=== PATIENT | female | born 1995 | race Two or more races ===

== ENCOUNTER 2024-03-18 18:44 | Inpatient (IN) | payer MEDICAID, SELFPAY ==
[2024-03-18] VITALS (65 sets, daily range): BP systolic 120–152; BP diastolic 66–83; PULSE 87–134; RESP 16–18; TEMP 36.8; O2SAT 79–100; BMI 27.4
[2024-03-18 20:26] LABS: Basophils % (Auto) 0 % (0-2.5); Eosinophils # (Auto) 0.1 Thou/mm3 (0.0-0.5); Eosinophils % (Auto) 1 % (0-10); Hematocrit 35.4 % (36.0-46.0); Hemoglobin 11.7 g/dL (12.0-16.0); Immature Granulocytes % (Auto) 1 % (0-0); Immature Granulocytes Auto 0.04 Thou/mm3 (0.00-0.00); Lymphocytes # (Auto) 2.2 Thou/mm3 (1.0-4.8); Lymphocytes % (Auto) 33 % (10-50); Mean Corpuscular HGB Conc 33.1 g/dl (31.0-37.0); Mean Corpuscular Hemoglobin 24.3 pg (25.0-35.0); Mean Corpuscular Volume 74 fL (80-100); Monocytes # (Auto) 0.6 Thou/mm3 (0.0-0.8); Monocytes % (Auto) 8 % (0-12); Neutrophils # (Auto) 3.8 Thou/mm3 (1.8-7.7); Neutrophils % (Auto) 57 % (37-80); Nucleated Red Blood Cell % 0 /100 WBC (0); Platelet Count 240 Thou/mm3 (140-440); RDW Standard Deviation 39.8 fL (36.4-46.3); Red Blood Count 4.81 Miln/mm3 (4.00-5.20); White Blood Count 6.7 Thou/mm3 (3.6-11.0)
[2024-03-18 20:56] LABS: Syphilis Nonreactive (Nonreactive)
--- NOTE | 2024-03-18 21:09 | XR_ITS ---
Examination: Complete OB ultrasound greater than 14 weeks Date and time of exam: March 18, 2024 2130 hrs. Indications: Ruptured amniotic membranes 1800 hrs., Active labor, labor evaluation Findings: Viable intrauterine single fetus with single amniotic sac presentation cephalic spine anterior Cardiac motion 131 BPM Placenta anterior grade 3 no abruption Umbilical cord insertion seen Amniotic fluid index 5.0 cm spine anterior Cervix 3.2 cm Ovaries obscured by bowel gas. Composite estimated gestational age based on BPD, head circumference, abdominal circumference, femur length is 38 weeks 6 days Estimated weight 3554.1 g. Survey of intracranial anatomy, spinal anatomy, abdominal anatomy, four-chamber heart performed with no abnormalities identified. Impression: Viable intrauterine gestation cephalic presentation Estimated gestational age 38 weeks 6 days Estimated weight 3554 g.
[2024-03-18] MEDS: RINGERS LACTATED 1000 ML 1,000 ML 125 ML IV (23:07)
[2024-03-19] VITALS (52 sets, daily range): BP systolic 93–150; BP diastolic 52–95; PULSE 73–156; RESP 16–18; TEMP 36.3–37.3; O2SAT 75–100
[2024-03-19] MEDS: MINERAL OIL 30 ML UDC TOP (00:50)
[2024-03-19] MEDS: OXYTOCIN INJ 10 UNIT/ML VIAL IM (01:11)
[2024-03-19] MEDS: MISOPROSTOL 200 mCg TABLET 800 MCG PR (01:14)
--- NOTE | 2024-03-19 01:37 | PD.LDHP ---
Documentation for date of: 03/19/24 OB Labor/Induct. HPI History of Present Illness Chief complaint: ROM/labor : 2 Para: 1 Term pregnancies: 1 pregnancies: 0 Living children: 0 History of Abortions: Spontaneous and Elective: 0 History of Vaginal deliveries: 1 History of sections: No History of : No Date of last menstrual period: 06/18/23 MAMTA: 03/24/24 Gestational Age (weeks): 39 Gestational Age (days): 2 Gestational age based on last menstrual period: 39 History of present illness: This is a 28-year-old 2 para 1 admit to labor and delivery with complaints of contractions since 1840 and she started leaking clear fluid at 1800. She has been followed at [facility] care. First visit 6 weeks. Last. June 18, 2023. This gives a due date March 24, 2024. Patient denies social habits. Denies surgery.'s chronic illness. She is O+, antibody screen negative, RPR nonreactive, rubella immune, hepatitis B-, hep C negative, HIV negative, GC and Chlamydia were negative. GBS negative. She had a normal 1 hour. And carrier screens and the NIPT and AFP all negative. Patient had normal anatomy scan with MFM. History of Present Dating criteria: LMP confirmed by 1st trimester US Adequate Care: Yes Ultrasounds: normal 1st trimester US and normal mid trimester US Obstetrical complications: none Medical complications: none Labs Labs: Negative: Hepatitis B, HIV, Chlamydia, Gonorrhea and Group Beta Strep Review of Systems Review of Systems Systems Reviewed: All systems reviewed, normal except as documented Past Medical History Surgical History SURGICAL: Negative Section Meds Home Medications and Allergies Home Medications ?Medication ?Instructions ?Recorded ?Confirmed ?Type vitamins no.144-folic tab PO 03/18/24 03/18/24 History acid 400 mcg chewable tablet () Allergies Allergy/AdvReac Type Severity Reaction Status Date / Time No Known Allergies Allergy Verified 11/30/21 05:30 OB Exam Physical Exam Vital signs: Temp Pulse Resp BP Pulse Ox 98.3 F 113 H 18 150/69 H 98 03/18/24 19:25 03/19/24 01:34 03/18/24 19:25 03/19/24 01:34 03/19/24 01:36 Narrative: Lungs are clear. No wheezes. Normal heart rate and rhythm. Gravid abdomen. Gynecoid pelvis. Estimated weight 7 pounds 10. On admission. Patient was 90% in 1, -1. Vertex. Leaking clear fluid. heart rate was category 1 with accelerations and moderate variability Detailed Labor and Delivery Exam Dilation (cm): 1 Effacement (%): 90 Cervix position: anterior station: -1 Consistency: medium Presentation: Vertex Cervical ripeness score: 7 Membranes: ruptured Amniotic fluid: clear Baseline heart rate: 120 monitor accelerations: 15x15 monitor decelerations: None terminal supervisor variability: Moderate (11-25) Contraction frequency (min): 2 Contraction duration (sec): 40 Tachysystole: No Contraction intensity: Moderate OB Results Labs 03/18/24 19:50 Labs: Short CBC 03/18/24 Range/Units 19:50 WBC 6.7 (3.6-11.0) Thou/mm3 Hgb 11.7 L (12.0-16.0) g/dL Hct 35.4 L (36.0-46.0) % Plt Count 240 (140-440) Thou/mm3 Impressions Impression: ROM/labor OB Assessment & Plan Assessment and Plan (1) Normal labor and delivery: Status: Acute Additional Plan Induction method: none Plan: anticipate NVD and consult MD boudreaux
--- NOTE | 2024-03-19 01:43 | OBDSUM_ITS ---
Data (Dial) Data Hx Section: No : 2 Para: 1 Term: 1 : 0 : 0 Delivery Data (Dial) Labor Data Stimulated/Augmented: No Induction: No ROM Date: 03/18/24 ROM Time: 18:00 Rupture Type: SROM Amniotic Fluid: Clear Delivery Data EDC: 03/24/24 Labor Onset Stage 1 Date: 03/18/24 Labor Onset Stage 1 Time: 18:40 Labor Onset Stage 2 Date: 03/19/24 Labor Onset Stage 2 Time: 00:30 Delivery Date: 03/19/24 Delivery Time: 01:06 Gestational age (weeks): 39 Gestational age (days): 2 Placenta Delivery Date: 03/19/24 Placenta Delivery Time: 01:12 Delivered by: Gina Betancourt Delivery nurse: Tariq Hughes Other staff at delivery: Nursery Nurse Other staff at delivery: Mackenzie Messer Delivery Method Delivery: Vaginal Delivery Type: Spontaneous Presentation: Vertex Position: OA Anesthesia Type Primary Anesthesia: Epidural Delivery Room Medications Other Intrapartum Medications: No Post Delivery Medications: Tocolytics and Cytotec Placenta Placenta Delivery: Spontaneous (placenta inspected, complete) Placenta Cultures Obtained: No Cord Sample: Cord Blood Obtained Episiotomy Episiotomy: None Lacerations #1: Vaginal: 1st degree (2 stitch) Perineal repair Sutures used for repair: 3.0 Vicryl EBL Estimated blood loss (ml): 350 Umbilical Cord Umbilical Vessels: 3 Nuchal Cord: None Body Cord: None [place] Data (Dial) [place] Data Gender: Male Weight Grams: 3665 1 Minute Total: 9 5 Minute Total: 9
[2024-03-19] MEDS: TRANEXAMIC ACID 1,000 MG IVPB 1,000 MG/100 ML BAG 200 MG IV (01:45)
[2024-03-19] MEDS: BENZO/LANO/ALOE (Dermoplast) 60 GM CAN 1 SPRAY TOP (02:00)
[2024-03-19] MEDS: OXYTOCIN in NS 20 units 20 UNIT/1,000 ML BAG 125 UNIT IV (02:10)
[2024-03-19] MEDS: IBUPROFEN TAB 400 MG TABLET 800 MG PO ×2 (02:18→09:23)
--- NOTE | 2024-03-19 08:50 | PC.LAC ---
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 mom stated she is doing well and does not need help at this time.
[2024-03-19] MEDS: DOCUSATE SOD 100 MG CAPSULE PO (09:23)
[2024-03-19 09:44] LABS: Basophils % (Auto) 0 % (0-2.5); Eosinophils % (Auto) 0 % (0-10); Hematocrit 33.5 % (36.0-46.0); Hemoglobin 11.1 g/dL (12.0-16.0); Immature Granulocytes % (Auto) 0 % (0-0); Immature Granulocytes Auto 0.05 Thou/mm3 (0.00-0.00); Lymphocytes # (Auto) 2.1 Thou/mm3 (1.0-4.8); Lymphocytes % (Auto) 18 % (10-50); Mean Corpuscular HGB Conc 33.1 g/dl (31.0-37.0); Mean Corpuscular Hemoglobin 24.6 pg (25.0-35.0); Mean Corpuscular Volume 74 fL (80-100); Monocytes # (Auto) 0.6 Thou/mm3 (0.0-0.8); Monocytes % (Auto) 5 % (0-12); Neutrophils # (Auto) 8.8 Thou/mm3 (1.8-7.7); Neutrophils % (Auto) 76 % (37-80); Nucleated Red Blood Cell % 0 /100 WBC (0); Platelet Count 208 Thou/mm3 (140-440); RDW Standard Deviation 40.7 fL (36.4-46.3); Red Blood Count 4.52 Miln/mm3 (4.00-5.20); White Blood Count 11.6 Thou/mm3 (3.6-11.0)
[2024-03-20 04:51] VITALS: BP 111/69; PULSE 90; RESP 13; TEMP 36.6; O2SAT 98
--- NOTE | 2024-03-20 06:59 | ESPR_ITS ---
Subjective Subjective Interval history: No complaints of pain. No dizziness. Bonding and breast-feeding. Exam Vital Signs Temp Pulse Resp BP Pulse Ox O2 Del Method 97.9 F 90 13 111/69 98 Room Air 03/20/24 04:51 03/20/24 04:51 03/20/24 04:51 03/20/24 04:51 03/20/24 04:51 03/20/24 04:51 Narrative Exam Vital signs are stable afebrile. Breasts are soft. Fundus firm below the umbilicus. Perineum intact no swelling. No lacerations. Uterus well involuted. Negative Homans' sign. 2+ DTRs. Objective Labs 03/19/24 08:31 Labs: Laboratory Results - last 24 hr 03/19/24 08:31 WBC 11.6 H D RBC 4.52 Hgb 11.1 L Hct 33.5 L MCV 74 L MCH 24.6 L MCHC 33.1 RDW Std Deviation 40.7 Plt Count 208 D Neut % (Auto) 76 Lymph % (Auto) 18 [facility] % (Auto) 5 Eos % (Auto) 0 Baso % (Auto) 0 Neut # (Auto) 8.8 H Lymph # (Auto) 2.1 [facility] [place] [facility] # (Auto) 0.6 Eos # (Auto) 0.0 Baso # (Auto) 0.0 Immature Gran # (Auto) 0.05 H Absolute Nucleated RBC 0.00 Immature Gran % 0 Nucleated RBC % 0 Assessment & Plan Problem List (1) Normal labor and delivery: Status: Acute Assessment Comment Assessment comment: 24 hr pp Plan Comment Plan Comment: Discharge home with baby. Continue vitamins and iron. Tylenol ibuprofen for pain. Discussed danger signs and symptoms and ER precautions. Parameters given. Discussed signs and symptoms of infection. Increase rest. Increase fluids. Return in 3 weeks visit Time Spent With Patient Time: Total time spent is greater than 50% in coordination of care (as documented) at patient's floor/unit and/or counseling patient:
--- NOTE | 2024-03-20 07:00 | ESDS_ITS ---
DS: Providers Provider Date of admission: 03/18/24 19:16 Primary care physician: Physician No Primary/Family Admitting Provider: Pernell Bales MD Attending Provider on Admission: Pernell Bales MD Consults: 03/19/24 04:49 Referral Routine Comment: Attending Provider on DC: Gina Betancourt CNM Discharging Provider: Gina Betancourt CNM DS: Diagnosis Problem List Completed Was Problem List Reviewed/Reconciled?: Yes Summary/Hosp Course Brief History: This is a 28-year-old 2 para 1 admit to labor and delivery with complaints of contractions since 1840 and she started leaking clear fluid at 1800. She has been followed at [facility] care. First visit 6 weeks. Last. June 18, 2023. This gives a due date March 24, 2024. Patient denies social habits. Denies surgery.'s chronic illness. She is O+, antibody screen negative, RPR nonreactive, rubella immune, hepatitis B-, hep C negative, HIV negative, GC and Chlamydia were negative. GBS negative. She had a normal 1 hour. And carrier screens and the NIPT and AFP all negative. Patient had normal anatomy scan with MFM. Peripartum Data Delivery Method: Normal Vaginal Delivery Episiotomy Description: None Laceration Description: no (intact) Time Spent with Patient Time attestation: Total time spent providing and/or coordinating discharge services: Exam Vital Signs Temp Pulse Resp BP Pulse Ox O2 Del Method 97.9 F 90 13 111/69 98 Room Air 03/20/24 04:51 03/20/24 04:51 03/20/24 04:51 03/20/24 04:51 03/20/24 04:51 03/20/24 04:51 Discharge Plan Plan Patient Disposition: HOME (Self Care) Prescriptions/Referrals Prescriptions/Med Rec: No Action 400 mcg Tablet,Chewable PO Referrals: No Primary/Family,Physician [Primary Care Provider] - Patient/Caregiver Discharge Instructions Print Language: Malagasy Activity Restrictions/Additional Instructions: Discharge home with baby. Continue vitamins and iron. Tylenol ibuprofen for pain. Danger signs. Return in 3 weeks visit. Discussed ER precautions and parameters. Discussed signs symptoms of infection. Return in 3 weeks visit Stand Alone Forms: Nupur Award Info., Patient Portal Info Letter Discharge Order Discharge Orders: Discharge (Routine); Ordered 03/20/24 Ordered By: Gina Betancourt Planned Discharge Date 03/20/24
[2024-03-20 08:40] VITALS: BP 102/64; PULSE 97; RESP 16; TEMP 36.9; O2SAT 98
[2024-03-20] MEDS: DOCUSATE SOD 100 MG CAPSULE PO (08:43)
== END 2024-03-20 13:50 | disposition home or self-care (01) | DRG 560 ==
LOC: S4SX 03-19 01:46 → S4NX 03-19 12:29
PROVIDERS: Advanced Practice Midwife; Admitting Provider Obstetrics & Gynecology; Visit Provider Obstetrics & Gynecology
DX: O70.0 First degree perineal laceration during delivery (principal); Z3A.39 39 weeks gestation of pregnancy; Z37.0 Single live birth
CPT/HCPCS: 36415; 59025; 59409; 76805; 85025; 86780; 86850; 86900; 86901; 94762; J2590; J2795; J3010; J3490; J7120; S0191; A9270